=== PATIENT | male | born 1995 | race Two or more races ===

== ENCOUNTER 2018-04-27 20:53 | Emergency (ER) | payer BC ==
[~2018-04-27] VITALS: Ht 175.3 cm; Wt 90.0 kg
[2018-04-27 20:55] VITALS: BP 145/84
== END 2018-04-27 21:48 | disposition home or self-care (01) ==
LOC: ED 21:19
DX: S93.401A Sprain of unspecified ligament of right ankle, initial encounter (principal); X50.1XXA Overexertion from prolonged static or awkward postures, initial encounter; Y93.01 Activity, walking, marching and hiking; Y92.009 Unspecified place in unspecified non-institutional (private) residence as the place of occurrence of the external cause; Y99.8 Other external cause status
CPT/HCPCS: 99284

== ENCOUNTER 2019-09-01 07:59 | Emergency (ER) | payer BC ==
[~2019-09-01] VITALS: Ht 172.7 cm; Wt 83.8 kg
--- NOTE | 2019-09-01 08:51 | NUR ---
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
--- NOTE | 2019-09-01 09:03 | NUR ---
pt to room from radiology. pt presents to ED with c/o intermittent diarrhea x 5 days, worse this am with midline lower abd pain. pt denies nausea/vomiting. pt denies hx cdiff or recent abx use. pt states he had a URI last week. pt a&o, resps even and unlabored, nadn. pt amb with steady gait. pt placed in gown. SULEMAN Scherer at bedside for initial assessmnet.
[2019-09-01 09:27] LABS: BASOPHILS # (AUTO) 0.08 x10^3/uL (0-0.1); BASOPHILS % (AUTO) 1 % (0-1); EOSINOPHILS # (AUTO) 0.15 x10^3/uL (0-0.4); EOSINOPHILS % (AUTO) 2 % (1-7); LYMPHOCYTES # (AUTO) 1.63 x10^3/uL (1-3.4); LYMPHOCYTES % (AUTO) 17 % (22-44); MD NO; MEAN CORPUSCULAR HEMOGLOBIN 26.2 pg (27.5-34.5); MEAN CORPUSCULAR HGB CONC 32.5 g/dL (33.2-36.2); MEAN CORPUSCULAR VOLUME 80.8 fL (81-97); MEAN PLATELET VOLUME 7.4 fL (7.4-10.4); MONOCYTES % (AUTO) 4 % (2-9); NEUTROPHILS # (AUTO) 7.48 x10^3/uL (1.8-6.8); NEUTROPHILS % (AUTO) 77 % (42-75); PLATELET COUNT 340 x10^3/uL (130-400); RED BLOOD COUNT 6.27 x10^6/uL (4.38-5.82); RED CELL DISTRIBUTION WIDTH 13.9 % (9.4-14.8)
[2019-09-01 09:37] LABS: ALANINE AMINOTRANSFERASE 35 U/L (12-78); ALBUMIN 3.9 g/dL (3.4-5.0); ANION GAP 4 mmol/L (5-15); CALCIUM 8.5 mg/dL (8.5-10.1); CHLORIDE 112 mmol/L (98-107); CREATININE 1.07 mg/dL (0.7-1.3)
[2019-09-01 09:39] LABS: ALKALINE PHOSPHATASE 104 U/L (45-117); BILIRUBIN,TOTAL 0.3 mg/dL (0.2-1.0); TOTAL PROTEIN 8.1 g/dL (6.4-8.2)
[2019-09-01 09:41] VITALS: BP 131/90
--- NOTE | 2019-09-01 09:42 | NUR ---
pt given instructions to provide urine and stool samples, supplies at bedside. pt denies urge to void or stool at this time. awaiting labwork and dispo at this time. pt a&o, resps even and unlabored, call light in reach.
--- NOTE | 2019-09-01 11:39 | NUR ---
BREAK RN: Patient/Caregiver given discharge instructions and they have confirmed that they understand the instructions. Patient ambulatory with steady gait.
== END 2019-09-01 11:41 | disposition home or self-care (01) ==
LOC: ED 10:51
DX: R10.84 Generalized abdominal pain (principal); R19.7 Diarrhea, unspecified
CPT/HCPCS: 36415; 74021; 80053; 83690; 85025; 99284